=== PATIENT | male | born 1980 | race Caucasian/White ===

== ENCOUNTER 2021-12-22 11:01 | Inpatient (IN) ==
[2021-12-22] MEDS ORDERED: LORazepam 2 mg VIAL 1 ml ONE (11:10)
[2021-12-22] MEDS ORDERED: Lorazepam PYXIS KEY PRN (11:55)
[2021-12-22] MEDS ORDERED: Haloperidol 5 mg/ml SDV IV/IM 5 MG/ML AMP IM ONE (11:55)
[2021-12-22] MEDS ORDERED: LORazepam 2 mg VIAL 1 ml IM ONE (11:55)
[2021-12-22] MEDS ORDERED: diPHENhydraMINE IV 50 MG/ML 1 ml VIAL (BENADRYL) IM ONE (11:56)
[2021-12-22 13:07] LABS: ABS Basophils 0.1 10^3/ul (0-0.2); ABS Eosinophils 0.3 10^3/ul (0-0.6); ABS Lymphocytes 1.8 10^3/ul (1.0-4.8); ABS Monocytes 0.7 10^3/ul (0-0.8); ABS Neutrophils 6.5 10^3/ul (1.5-7.7); Eosinophil % 3.3 %; Hematocrit 42 % (42-52); Hemoglobin 14.3 g/dL (14.0-18.0); Lymphocyte % 19.6 %; Mean Corpuscular HGB Conc 34 g/dL (31-36); Mean Corpuscular Hemoglobin 31 pg (27-31); Mean Corpuscular Volume 91 fL (80-94); Mean Platelet Volume 7.1 fL (7.4-10.4); Platelet Count 284 10^3/uL (150-450); Red Blood Count 4.61 10^6 /uL (4.18-5.48); Red Cell Distribution Width 14 % (10-15); White Blood Count 9.4 10^3/uL (3.5-10.8)
[2021-12-22 13:48] LABS: ALT 15 U/L (7-52); AST 16 U/L (13-39); Acetaminophen < 15 mcg/mL; Albumin 3.7 g/dL (3.2-5.2); Albumin/Globulin Ratio 1.6 (1-3); Alcohol, S < 13 mg/dL (<13); Alkaline Phosphatase 101 U/L (35-149); Anion Gap 6 mmol/L (2-11); Blood Urea Nitrogen 8 mg/dL (6-24); CO2 Carbon Dioxide 27 mmol/L (22-32); Calcium 8.7 mg/dL (8.6-10.3); Chloride 108 mmol/L (101-111); Globulin 2.3 g/dL (2-4); Glucose 84 mg/dL (70-100); Potassium 3.9 mmol/L (3.5-5.0); Salicylate < 2.50 mg/dL (<30); Sodium 141 mmol/L (135-145); eGFR CKD-EPI 107.2 (>60)
[2021-12-22 13:59] LABS: TSH Ultra Thyroid Stim Horm 0.47 mcIU/mL (0.34-5.60)
[2021-12-22 17:13] LABS: Urine Appearance Clear; Urine Bilirubin Negative (Negative); Urine Blood Negative (Negative); Urine Color Yellow; Urine Glucose Negative (Negative); Urine Ketones Negative (Negative); Urine Nitrite Negative (Negative); Urine Protein Negative (Negative); Urine Urobilinogen Negative (Negative)
[2021-12-22 17:22] LABS: Urine Benzodiazepine Screen None Detected (None Detect); Urine Cannabinoids Screen None Detected (None Detect); Urine Opiates Screen None Detected (None Detect)
[2021-12-22] MEDS ORDERED: Al Hydrox/Mg Hydrox/Simet LIQ 30 ML UDC PO PRN (21:18)
[2021-12-22] MEDS ORDERED: Nicotine GUM 4MG FRUIT FLAVOR PO PRN (21:18)
[2021-12-23] MEDS: Multivitamins/Minerals TAB PO SCH (10:08)
[2021-12-23] MEDS: Nicotine PATCH 21 MG/24 HR PATCH TRANSDERM SCH (10:08)
[2021-12-24] MEDS: Multivitamins/Minerals TAB PO SCH (09:42)
[2021-12-24] MEDS: Nicotine PATCH 21 MG/24 HR PATCH TRANSDERM SCH (09:43)
[2021-12-25] MEDS: Nicotine PATCH 21 MG/24 HR PATCH TRANSDERM SCH (11:47)
[2021-12-25] MEDS: Multivitamins/Minerals TAB PO SCH (11:47)
[2021-12-26] MEDS: Multivitamins/Minerals TAB PO SCH (10:32)
[2021-12-26] MEDS: Nicotine PATCH 21 MG/24 HR PATCH TRANSDERM SCH (10:32)
[2021-12-27 09:12] VITALS: BP 115/63
[2021-12-27] MEDS: Multivitamins/Minerals TAB PO SCH (11:30)
[2021-12-27] MEDS: Nicotine PATCH 21 MG/24 HR PATCH TRANSDERM SCH (11:31)
== END 2021-12-27 11:50 | disposition home or self-care (01) | DRG 897 ==
LOC: ED 11:01 → EDHOLD 18:40 → BSU 20:50
PROVIDERS: ADMIT Psychiatry & Neurology Addiction Psychiatry; ATTEND Psychiatry & Neurology Addiction Psychiatry